=== PATIENT | female | born 1945 | race Caucasian/White ===

== ENCOUNTER → 2023-07-22 | Outpatient (CLI) | payer MEDICARE, SELFPAY ==
--- NOTE | 2023-07-22 10:23 | MRI_ITS ---
EXAM: MR HEAD WITHOUT AND WITH INTRAVENOUS CONTRAST, INTERNAL AUDITORY CANAL PROTOCOL CLINICAL INDICATION: HEARING LOSS TECHNIQUE: Multiplanar and multisequence MR images of the internal auditory canal were obtained without and with intravenous contrast. CONTRAST: IV 20 ml clariscan COMPARISON: No relevant prior studies available. FINDINGS: CRANIAL NERVES: No significant abnormality. No mass. No abnormal enhancement. Specifically, the 7th and 8th nerve complexes are normal. No pathologic enhancement. COCHLEA AND SEMICIRCULAR CANALS: No significant abnormality. CEREBELLOPONTINE ANGLES: No significant abnormality. No mass. BRAIN AND EXTRA-AXIAL SPACES: Periventricular and subcortical T2 and T2 FLAIR hyperintense foci are nonspecific although most commonly due to chronic microvascular ischemic changes in patient of this age. Posterior fossa structures are unremarkable. No hydrocephalus. Basal cisterns are patent. No evidence of acute infarct or acute intracranial hemorrhage and no intracranial mass or mass effect. BONES/JOINTS: No significant abnormality. No discrete lytic or blastic abnormalities. SINUSES: Left larger than right maxillary sinus mucus retention cyst. MASTOID AIR CELLS: Trace right mastoid effusion. ORBITS: Bilateral ocular lens extraction presumptively for the treatment of cataracts. Otherwise, no acute orbital pathology. MRI/Brain W/WO Contrast IMPRESSION: Findings most consistent with chronic microvascular ischemic change. No evidence of retrocochlear pathology. Electronically Signed: Gustavo Hawley DO at 20:33 EST ,
[2023-07-22 11:23] LABS: CREATININE FINGERSTICK < 0.9 mg/dL (0.55-1.02); EGFR FINGERSTICK > 60.0000 mL/min (>60)
== END | disposition home or self-care (01) ==
PROVIDERS: PCP Family Medicine; Referring Provider Otolaryngology; Visit Provider Otolaryngology
DX: H90.3 Sensorineural hearing loss, bilateral (principal)
CPT/HCPCS: 70553; A9575

== ENCOUNTER → 2025-07-08 | Outpatient (CLI) | payer MEDICARE, SELFPAY | END | disposition home or self-care (01) | LOC: SL 19:48 | PROVIDERS: PCP Family Medicine; Referring Provider Internal Medicine Cardiovascular Disease; Visit Provider Internal Medicine Cardiovascular Disease | DX: G47.10 Hypersomnia, unspecified (principal) | CPT/HCPCS: 95810 ==

== ENCOUNTER 2025-08-13 10:14 | Emergency (ER) | payer MEDICARE, SELFPAY ==
[2025-08-13 10:15] VITALS: BP 139/57; PULSE 86; RESP 20; TEMP 36.4; O2SAT 98
[2025-08-13 10:17] VITALS: BMI 44.4
--- NOTE | 2025-08-13 10:40 | VDLE_ITS ---
Reason For Study Reason For Study: RLE Swelling/Pain RIGHT GSV is normal. CFV is compressible, spontaneous, phasic, competent and demonstrates normal augmentation. FV is compressible, spontaneous, phasic, competent and demonstrates normal augmentation. POP V is compressible, spontaneous, phasic, competent and demonstrates normal augmentation. T/P Trunk is compressible. PTV is compressible. RT PerV is compressible. Anechoic Nonvascularized area noted from medial knee to mid medial gastrocnemius muscle measuring approximately 8.00cm x 2.06cm. Procedure Exam performed portable in ED. This is a venous duplex using B-mode, color flow and spectral Doppler. The study was technically difficult. Limited views of calf vessels obtained due to swelling and edema. A preliminary report was called and/or faxed to Dr. Pizano. VL/Venous Duplex US, Unilateral Interpretation Summary Deep veins of the right lower extremity are patent and compressible segmentally . There is no evidence of right lower extremity deep vein thrombosis. Valvular competence appears intact within the p roximal deep venous system on the right . The right great saphenous vein appears patent and compressible segmentally. A n on-vascular, anechoic structure is noted on the medial aspect of the right knee and calf, measuring 8.00 cm x 2.06 cm. T his may represent a hematoma or seroma. Clinical correlation is advised. Ordering Physician: Ritesh Pizano Referring Physician: Lilia Daniel Performed By: Ruben Basurto, JAVI
--- NOTE | 2025-08-13 10:41 | EX.ED.DYSGE1 ---
HPI History of Present Illness Chief Complaint: Lower Extremity Injury Narrative Narrative: Pt is a 79-year-old female who is presenting with right leg swelling, to concern DVT. on Saturday patient was coming down 1 step. Patient stated that she felt a twisting of her knee and right calf. Patient felt a popping sensation. Patient's been having a harder time ambulating at home for the past 5 days. Patient has been using a walker. Patient used a wheelchair to come into the ER today. Patient has swelling and bruising to the right calf/medial aspect of right calf. Patient is on a blood thinner. Patient has seen Dr. Erasto Baird in the past for left total knee replacement. Patient has not called her PCP orthopedic surgeon today. Patient has been using some heat, not using consistent ice. Patient has been taking nothing for the pain. Patient was brought in by 2 daughters, patient chief concern is blood clot. Patient is having some mild pain to right ankle and foot with swelling. Obese, REVIEW OF SYSTEMS: Unless otherwise stated in this report the patient's positive and negative responses for review of systems for constitutional, eyes, ENT, cardiovascular, respiratory, gastrointestinal, neurological, , musculoskeletal, and integument systems and related systems to the presenting problem are either stated in the history of present illness or were not pertinent or were negative for the symptoms and/or complaints related to the presenting medical problem. Nurse's notes and vital signs reviewed. The patient is not hypoxic. Vital signs reviewed and patient is not hypoxic. General: The patient appears well and in no apparent distress. Patient is resting comfortably on cart. Not toxic, lethargic, or listless. Skin: Warm, dry, no pallor noted. There is no rash noted. Head: Normocephalic, atraumatic Eye: Normal conjunctiva, no drainage, EOMI. PERRL. Ears, Nose, Mouth, and Throat: oral mucosa is moist. Nares patent. Mouth without vesicles. Cardiovascular: Regular Rate and Rhythm, no murmurs, gallops, or rubs Respiratory: Patient is in no distress, no accessory muscle use, lungs are clear to auscultation, no wheezing, rales or rhonchi Back: non-tender, GI: Soft, obese, no tenderness Musculoskeletal: The patient has full range of motion of all extremities and joints with no difficulty. Patient has no motor, no sensory deficits. Patient has moderate tenderness palpation to the posterior aspect of the right calf. Moderate tenderness palpation of the right popliteal fossa, no pain to palpation to the right posterior thigh. Patient has moderate swelling to the right calf, she has ecchymosis noted to the medial aspect of her right calf. Patient has mild swelling to the right foot and ankle, she has no tenderness to palpation to right Achilles, no acute tenderness to palpation to bilateral malleoli or the dorsal or posterior plantar aspect of the right foot. Patient has moderate range of motion of the right knee with mild to moderate pain. No obvious signs of anterior posterior drawer sign to the right knee, but limited range of motion secondary to right calf pain. Patient has no laxity or pain with varus or valgus stress. Patient does have ecchymosis noted to the medial aspect of her right calf, mild amount. Neurological: A&O x4, normal speech, no focal neurological deficits. Psychiatric: Cooperative [facility] Medical History Pulmonary hypertension NICK (obstructive sleep apnea) Thrombus of left atrial appendage Tricuspid valve regurgitation Hypertension Dyslipidemia Type 2 diabetes mellitus Heart failure with preserved ejection fraction Myocardial infarction Atrial fibrillation Home Medications ?Medication ?Instructions ?Recorded ?Last Taken ?Type acetaminophen 650 mg 650 mg PO Q8H PRN 05/24/25 Unknown History tablet,extended release (Tylenol 8 Hour) ascorbate calcium (vitamin C) 500 500 mg PO QDAY 05/24/25 Unknown History mg tablet calcium citrate 250 mg PO QDAY 05/24/25 Unknown History cetirizine 10 mg tablet (Allergy 10 mg PO QDAY PRN 05/24/25 Unknown History Relief (cetirizine)) cholecalciferol (vitamin D3) 50 50 mcg PO QDAY 05/24/25 Unknown History mcg (2,000 unit) capsule multivitamin 1 tab PO QDAY 05/24/25 Unknown History nystatin 100,000 unit/gram topical 1 applic topical TID 05/24/25 Unknown History cream furosemide 20 mg tablet (Lasix) 20 mg PO QDAY #120 tabs 06/09/25 Unknown Rx metoprolol succinate 25 mg 12.5 mg (1/2 x 25 mg) PO QDAY #90 06/09/25 Unknown Rx tablet,extended release 24 hr tabs potassium chloride 10 mEq 10 meq PO BID #90 tabs 06/09/25 Unknown Rx tablet,extended release (Klor-Con) rivaroxaban 20 mg tablet (Xarelto) 20 mg PO QDAY #90 tabs 06/09/25 Unknown Rx tramadol 50 mg tablet 50 mg PO Q4H PRN PRN Pain 5 days 08/13/25 Unknown Rx #15 tabs Allergy/AdvReac Type Severity Reaction Status Date / Time No Known Allergies Allergy Verified 08/13/25 10:17 Family History Father Cancer Mother Heart disease Brother CVA (cerebral vascular accident) Surgical History History of cholecystectomy History of knee replacement History of tubal ligation Social History Smoking Status: Former smoker alcohol intake: never substance use type: does not use caffeine: No EXAM Physical Exam Const Vital Signs: 08/13/25 10:15 08/13/25 13:11 Temperature 97.6 F L 97.8 F Temperature Source Temporal Pulse Rate 86 90 Respiratory Rate 20 H 16 Blood Pressure 139/57 H 136/54 H Blood Pressure Mean 84 81 Pulse Ox 98 98 Oxygen Delivery Method Room Air MDM MDM MDM Narrative Medical decision making narrative: Patient duplex of the right lower extremity shows no DVT. A x-ray was ordered of the right tib-fib because her pain is into the mid right medial calf. No acute signs of fracture. A lot of education was done at bedside with patient and 2 daughters Key's cyst, DVT, meniscus tear, ligament sprain, or right calf muscle tear. Education on using ice and no more heat was discussed. Patient will start using Tylenol and was also given a prescription for tramadol. Patient understands this, no questions at discharge. Patient was able to stand at bedside, get dressed. Patient and 2 daughters feel comfortable taking her home using a walker. Patient was given Tylenol and tramadol in the ER. Radiography Diagnostic Testing: Clinical Impression(s) from Imaging Studies Tibia/Fibula X-Ray 08/13/25 12:25 IMPRESSION: DEGENERATIVE OSTEOARTHROSIS. NO ACUTE FINDINGS. Reading Location: [facility] Discharge Plan Triage Chief Complaint: Lower Extremity Injury ED Provider: Ritesh Pizano Dx/Rx/DC Orders Clinical Impression: Leg pain, right Instructions: Gastrocnemius Muscle Tear, ED Key's Cyst, ED Meniscal Injury Knee Poss, ED Knee Sprain Ligaments Prescriptions: New tramadol 50 mg tablet 50 mg PO Q4H PRN PRN (Reason: Pain) 5 Days Qty: 15 0RF No Action nystatin 100,000 unit/gram cream 1 applic topical TID cetirizine [Allergy Relief (cetirizine)] 10 mg tablet 10 mg PO QDAY PRN multivitamin Tablet 1 tab PO QDAY acetaminophen [Tylenol 8 Hour] 650 mg tablet extended release 650 mg PO Q8H PRN cholecalciferol (vitamin D3) 50 mcg (2,000 unit) capsule 50 mcg PO QDAY calcium citrate 250 mg calcium tablet 250 mg PO QDAY ascorbate calcium (vitamin C) 500 mg tablet 500 mg PO QDAY furosemide [Lasix] 20 mg tablet 20 mg PO QDAY Qty: 120 3RF Rx Instructions: 1 tablet daily on Sat, , Sat, Sat, Sat; 1 tablet twice daily on Sat and metoprolol succinate 25 mg tablet extended release 24 hr 12.5 mg PO QDAY Qty: 90 3RF potassium chloride [Klor-Con 10] 10 mEq tablet extended release 10 meq PO BID Qty: 90 3RF Rx Instructions: 1 tablet twice daily Sat, , Sat, Sat, Sat; 1 tablet three times daily Sat and Th Xarelto 20 mg tablet 20 mg PO QDAY Qty: 90 3RF Rx Instructions: must administer with evening meal Primary Care Provider: Lilia Daniel Referrals: Erasto Baird MD [Med Staff - Active Staff, Orthopedics] Lilia Daniel PA-C [Primary Care Provider, Medical] Activity Restrictions/Additional Instructions: Use ice 20 minutes on, 20 minutes off to areas of pain to the right leg for the next 1 to 2 weeks. Use Tylenol every 4 hours as needed for pain, max dose is 3000 mg a day. You may also use tramadol to take for pain with Tylenol if needed for moderate to severe pain. Education was given to meniscus tear, ligament tear, muscle tear, Key's cyst for educational purposes only. I am not diagnosing him with any of these conditions, but these are all the things we discussed at bedside as possible reasons for the swelling and bruising. Print Language: Mosotho Disposition Disposition: Home, Self Care Discharge Date/Time: 08/13/25 13:12
--- OUTSIDE RECORDS SUMMARY | 2025-08-13 12:07 | XMS RPT_ITS | CCD ---
Author Organization [facility] Care Team Providers Care Diet Counselor Name Role Phone HILLS, CASEY Consulting Unavailable HARDY, CASEY Primary Care Unavailable HARDY, CASEY Admitting Unavailable HARDY, CASEY Attending Unavailable PROVIDER, UNKNOWN Consulting Unavailable HARDY, CASEY Primary Care Unavailable HARDY, CASEY Admitting Unavailable HILLS, CASEY Attending Unavailable HILLS, CASEY Consulting Unavailable PROVIDER, UNKNOWN Consulting Unavailable HEIN, DAMIEN Admitting Unavailable HEIN, DAMIEN Attending Unavailable HEIN, DAMIEN Primary Care Unavailable HARDY, CASEY Consulting Unavailable PROVIDER, UNKNOWN Consulting Unavailable FRAN GRIMALDO MD Admitting UnavailFRAN Enriquez MD Attending Unavailabl e FRAN GRIMALDO MD Primary Care Unavailabl e HARDY, CASEY Consulting Unavailable PROVIDER, UNKNOWN Consulting Unavailable HEIN, DAMIEN Primary Care Unavailable HEIN, DAMIEN Admitting Unavailable HEIN, DAMIEN Attending Unavailable HARDY, CASEY Consulting Unavailable PROVIDER, UNKNOWN Consulting Unavailable HARDY, CASEY Primary Care Unavailable HARDY, CASEY Admitting Unavailable HILLS, CASEY Attending Unavailable HILLS, CASEY Consulting Unavailable PROVIDER, UNKNOWN Consulting Unavailable FRAN GRIMALDO MD Admitting UnavailFRAN Enriquez MD Attending UnavailFRAN Enriquez MD Primary Care Unavailnoel GUDINO MD, DR BLANCHE Camarena Attending Unavailable HARDY PA-C, CASEY Primary Care Unavailable Brinklow PA-C, Casey Primary Care Physician [phone] María VELASCOC, Casey Referring Provider Dr. Gordon Fernandez MD Attending Physician Gordon Fernandez Attending Unavailable Brinklow PA, Casey Primary Care Unavailable Brinklow PA, Casey Referring Unavailable Natalie Kingsley NP Attending Unavailable Brinklow PA, Casey Primary Care Unavailable Brinklow PA, Casey Referring Unavailable Gordon Fernandez Referring Unavailable Brinklow PA, Casey Primary Care Unavailable Gordon Fernandez Attending Unavailable Medications Current Medications Medication Drug Class(es) Dates Sig (Normalized) Sig (Original) 8 hr acetaminophen 650 mg extended release oral tablet (1 source) Start: 05-24-2025 take 1 tablet by mouth every eight hours as needed Acetaminophen (Tylenol 8 Hour) 650 mg tablet extended release Active 650 mg PO Q8H as needed May 24, 2025 12:00am Complies with drug therapy calcium ascorbate 500 mg oral tablet (1 source) Start: 05-24-2025 take 1 tablet by mouth once daily Ascorbate Calcium (Vitamin C) 500 mg tablet Active 500 mg PO daily May 24, 2025 12:00am Complies with drug therapy calcium citrate 1040 mg oral tablet (1 source) Start: 05-24-2025 take 1 tablet by mouth once daily Calcium Citrate 250 mg calcium tablet Active 250 mg PO daily May 24, 2025 12:00am Complies with drug therapy cetirizine hydrochloride 10 mg oral tablet (1 source) Histamine-1 Receptor Antagonist Start: 05-24-2025 take 1 tablet by mouth once daily as needed Cetirizine (Allergy Relief (Cetirizine)) 10 mg tablet Active 10 mg PO daily as needed May 24, 2025 12:00am Complies with drug therapy cholecalciferol 0.05 mg oral capsule (1 source) Vitamin D Start: 05-24-2025 take 1 capsule by mouth once daily Cholecalciferol (Vitamin D3) 50 mcg (2,000 unit) capsule Active 50 ug PO daily May 24, 2025 12:00am Complies with drug therapy furosemide 20 mg oral tablet (2 sources) Loop Diuretic Start: 05-24-2025 End: 06-09-2025 take 1 tablet by mouth once daily Furosemide (Lasix) 20 mg tablet Active 20 mg PO daily 120 June 09, 2025 11:40am 1 tablet daily on Sun, Tu, Wed, Fri, Sat; 1 tablet twice daily on Mon and Th Complies with drug therapy 24 hr metoprolol succinate 25 mg extended release oral tablet (3 sources) beta-Adrenergic Carmen Start: 06-09-2025 End: 06-09-2025 take 2 tablets by mouth once daily Metoprolol Succinate 25 mg tablet extended release 24 hr Active 12.5 mg PO daily 90 June 09, 2025 11:42am Complies with drug therapy Start: 05-24-2025 End: 06-09-2025 take 1 tablet by mouth once daily Metoprolol Succinate 25 mg tablet extended release 24 hr Discontinued 25 mg PO daily May 24, 2025 12:00am June 09, 2025 11:08am Multivitamin tablet (1 source) Start: 05-24-2025 Multivitamin tablet Active 1 {tbl} PO daily May 24, 2025 12:00am Complies with drug therapy nystatin [id number] unt/ml topical cream (1 source) Polyene Antifungal Start: 05-24-2025 Nystatin 100,000 unit/gram cream Active 1 NMA TOPICAL THREE TIMES A DAY May 24, 2025 12:00am Complies with drug therapy potassium chloride 10 meq extended release oral tablet (2 sources) Start: 05-24-2025 End: 06-09-2025 take 1 tablet by mouth twice daily Potassium Chloride (Klor-Con 10) 10 mEq tablet extended release Active 10 meq PO TWICE A DAY 90 June 09, 2025 11:42am 1 tablet twice daily Sun, Tu, Wed, Fri, Sat; 1 tablet three times daily Sat and Complies with drug therapy rivaroxaban 20 mg oral tablet (2 sources) Factor Xa Inhibitor Start: 05-24-2025 End: 06-09-2025 take 1 tablet by mouth once daily at dinner Rivaroxaban (Xarelto) 20 mg tablet Active 20 mg PO daily 90 June 09, 2025 11:42am must administer with evening meal Complies with drug therapy triamcinolone acetonide 1 mg/ml topical cream (1 source) Corticosteroid Start: 05-24-2025 Triamcinolone Acetonide 0.1 % cream Active 1 NMA TOPICAL TWICE A DAY May 24, 2025 12:00am Complies with drug therapy Problems Active Problems Problem Classification Problem Date Documented Da te Episodic/Chronic Cardiac dysrhythmias (6 sources) Unspecified atrial fibrillation; Translations: [Atrial fibrillation] Onset: 05-28-2024 Chronic Congestive heart failure; nonhypertensive (3 sources) Heart failure, unspecified; Translations: [Heart failure with normal ejection fraction] Onset: 03-08-2025 06-09-2025 Chronic Diabetes mellitus without complication (3 sources) Type 2 diabetes mellitus without complications; Translations: [Type 2 diabetes mellitus] Onset: 05-20-2024 06-09-2025 Chronic Diabetes mellitus without complication (2 sources) Prediabetes; Translations: [Prediabetes] Onset: 09-15-2024 Episodic Disorders of lipid metabolism (2 sources) Dyslipidemia; Translations: [Hyperlipidemia, unspecified] 05-24-2025 Chronic Essential hypertension (2 sources) Hypertensive disorder; Translations: [Essential (primary) hypertension] 06-09-2025 Chronic Heart valve disorders (2 sources) Rheumatic tricuspid insufficiency; Translations: [Tricuspid valve regurgitation] Onset: 05-28-2024 05-24-2025 Chronic Pulmonary heart disease (2 sources) Pulmonary hypertension; Translations: [Pulmonary hypertension, unspecified] 05-24-2025 Chronic Residual codes; unclassified (1 source) Obstructive sleep apnea syndrome; Translations: [Obstructive sleep apnea (adult) (pediatric)] 05-24-2025 Chronic Residual codes; unclassified (1 source) Hypersomnia, unspecified; Translations: [Hypersomnia, unspecified] Onset: 07-19-2025 Chronic Past or Other Problems Problem Classification Problem Date Documented Da te Episodic/Chronic Other aftercare (1 source) Other [employer] (current) drug therapy; Translations: [Other senior living (current) drug therapy] Onset: 07-17-2024 Episodic Other skin disorders (3 sources) Sebaceous cyst; Translations: [Sebaceous cyst] Onset: 07-17-2024 Episodic Residual codes; unclassified (1 source) Edema, unspecified; Translations: [Edema, unspecified] Onset: 10-12-2024 Episodic Results Test Name Value Interpretation Reference Range Facility Cardiology Visit Reporton Cardiology Visit Report [facility] [address] [place] [address] OFFICE VISIT Date of Service: 06/09/25 MR#: [id number] Acct: [id number] Name: SANDRA ARREDONDO Rep #: [id number] : 1945 Provider: Dr. Gordon frank MD Age/Sex: 79/F Location: [facility] [place] Status: Signed with Addenda ADDENDUM by Dr. Gordon Fernandez MD on 06/10/25 at 1033 Assessment and Plan Assessment and Plan (1) Heart failure with preserved ejection fraction: Status: Acute Qualifiers: Heart failure chronicity: chronic Qualified Code(s): I50.32 - Chronic diastolic (congestive) heart failure (2) Atrial fibrillation: Status: Acute Qualifiers: Atrial fibrillation type: permanent Qualified Code(s): I48.21 - Permanent atrial fibrillation (3) Dyslipidemia: Status: Acute (4) Hypertension: Status: Chronic Qualifiers: Hypertension type: primary hypertension Qualified Code(s): I10 - Essential (primary) hypertension (5) Pulmonary hypertension: Status: Acute Plan: Suspect obstructive sleep apnea is part of the etiology of her pulmonary hypertension. STOP-BANG Assessment: 1. Do you snore? [No] 2. Are you frequently tired during the day? [Yes] 3. Have you been observed gasping or choking while asleep? [No] 4. Do you have high blood pressure? [Yes] 5. BMI - greater than 35kg/m2? [Yes] 6. Age - over 50 years old? [Yes] 7. Neck Circumference - greater than 37 cm for females or 40 cm for males? [No] 8. Gender - male? [No] Total STOP-BANG score = [4] which indicates [high] risk for obstructive sleep apnea (yes to 3 or more questions = high risk of sleep apnea). (6) Type 2 diabetes mellitus: Status: Acute Qualifiers: Diabetes mellitus senior living insulin use: without senior living use Diabetes mellitus complication status: without complication Qualified Code(s): E11.9 - Type 2 diabetes mellitus without complications Orders: Orders 12 Lead EKG performed by [facility] 06/09/25 I48.91 - Unspecified atrial fibrillation Polysomnography 2 Weeks G47.10 - Hypersomnia, unspecified Medications: New furosemide (Lasix) 1 tablet daily on Sun, , Wed, Fri, Sat; 1 tablet twice daily on Mon and Thurs 20 mg PO QDAY 120 tabs 3RF metoprolol succinate ER 12.5 mg (1/2 x 25 mg) PO QDAY 90 tabs 3RF potassium chloride ER (Klor-Con) 1 tablet twice daily Sun, Tu, Sat, Fri, Sat; 1 tablet three times daily Mon and Thurs 10 mEq PO BID 90 tabs 3RF rivaroxaban (Xarelto) must administer with evening meal 20 mg PO QDAY 90 tabs 3RF Plan Details Follow Up: 6 Months (With CONNIE and as needed) 06/10/25 1033 Date Gordon Fernandez MD cc: LISANDRO Daniel * Signed HPI HPI History of Present Illness Details: Patient is a very pleasant 79-year-old white female that comes in with her 2 daughters this morning to establish as a new patient. Patient carries a history of heart failure with preserved ejection fraction. She has never been hospitalized. She also has a history of pulmonary hypertension pulmonary artery pressures estimated at 42 with the right ventricle being mildly enlarged with normal systolic function May 2024 echo. She has a history of hypertension blood pressure is well-controlled in the office today at 131/80 she has a history of hyperlipidemia last lipids May 2024 were excellent she also has a history of diabetes I do not have a hemoglobin A1c. The patient also has permanent atrial fibrillation which is treated with oral anticoagulation with Xarelto which she gets for $10-$12 a month and rate control with metoprolol. ECG in office today shows atrial fibrillation at 74 bpm with low voltage QRS this was done seated in the chair. The patient has not been on an SGLT2 inhibitor as she has recurrent yeast infections and is concerned about the side effects. The patient denies any PND orthopnea she denies any significant dyspnea on exertion. She gets around in her house utilizing a cane and occasionally a walker. When going on long walks out to the store she uses a wheelchair. The patient does her actives of daily living and she is able to do some light housework. Her biggest complaint is her significant kyphosis. The patient has a history of obstructive sleep apnea but neither she nor her daughters know where that came from she has never had a sleep test to her knowledge. Intake Vital Signs 06/09/25 11:09 Height 4 ft 10 in Weight: 201 lb BMI 42.0 BP 131/80 H Blood Pressure Location Lt brachial Position Sitting Respiration 18 Pulse 72 Pulse Source Monitor Pulse Oximetry (%) 95 Oxygen Delivery Method room air Intake Visit Reasons: CHF (MARÍA) Extractions Technician Required: No Accompanied by: Daughters Is patient in pain?: No Allergies No Known Allergies Allergy (U (more content not included)... Normal [facility] BMP with eGFRon 03-08-2025 AGE 79 years Normal [facility] Comment on above: Performed By: #### 2 [id number] #### [facility],[address] [place] [address] 23021 Anion gap [Moles/Vol] 8 mmol/L Low 10 - 20 [facility] Comment on above: Performed By: #### 2 14645 #### [facility],[address] [place] [address] 73547 BMP with eGFR Normal [facility] Comment on above: Result Comment: BASI C METABOLIC PANEL Performed By: #### 2 84913 #### [facility],[address] [place] [address] 15340 Calcium [Mass/Vol] 8.6 mg/dL Normal 8.5 - 10.1 [facility] Comment on above: Performed By: #### 2 95647 #### [facility],[address] [place] [address] 98427 Chloride [Moles/Vol] 105 mmol/L Normal 98 - 107 [facility] Comment on above: Performed By: #### 2 83206 #### [facility],[address] [place] [address] 68677 CO2 [Moles/Vol] 30.2 mmol/L Normal 21.0 - 32.0 [facility] Comment on above: Performed By: #### 2 80252 #### [facility],[address] [place] [address] 64736 Creatinine [Mass/Vol] 0.62 mg/dL Normal 0.55 - 1.02 [facility] Comment on above: Performed By: #### 2 92571 #### [facility],[address] [place] [address] 87016 GFR/1.73 sq M.predicted among non-blacks MDRD (S/P/Bld) [Vol rate/Area] mL/min/{1.73_m2} Normal 60 - 999 [facility] Comment on above: Performed By: #### 2 93487 #### [facility],[address] [place] [address] Result Comment: ACCO RDING TO THE NATIONAL KIDNEY DISEASE EDUCATION PROGRAM(NKDE), A NORMAL eGFR IS A VALUE GREATER THAN OR EQUAL TO 60 ML/MIN/1.73 SQ METERS. CHRONIC KIDNEY DISEASE: <60mL/MIN/1.73 SQ METERS KIDNEY FAILURE: <15mL/MIN/1.73 SQ METERS THIS TEST SHOULD ONLY BE USED FOR PATIENTS 18 YEARS OF AGE AND OLDER. Glucose [Mass/Vol] 112 mg/dL High 74 - 106 [facility] Comment on above: Performed By: #### 2 46804 #### [facility],[address] [place] [address] Potassium [Moles/Vol] 4.3 mmol/L Normal 3.5 - 5.1 [facility] Comment on above: Performed By: #### 2 70381 #### [facility],[address] [place], [place] [id number] Sodium [Moles/Vol] 139 mmol/L Normal 136 - 145 [facility] Comment on above: Performed By: #### 2 28165 #### [facility],[address] [place], [place] [id number] Urea nitrogen [Mass/Vol] 14 mg/dL Normal 7 - 18 [facility] Comment on above: Performed By: #### 2 54585 #### [facility],[address] [place], [place] [id number] NT-proBNPon 03-08-2025 Natriuretic peptide B (Bld) [Mass/Vol] 1303 pg/mL High 0 - 450 [facility] Comment on above: Performed By: #### 2 54693 #### [facility],[address] [place] [address] 67650 CMP with eGFRon 10-12-2024 AGE 78 years Normal [facility] Comment on above: Performed By: #### 2 11270 #### [facility],[address] [place] [address] 57584 Albumin [Mass/Vol] 3.1 g/dL Low 3.4 - 5.0 [facility] Comment on above: Performed By: #### 2 62222 #### [facility],[address] [place] [address] 39256 Albumin/Globulin [Mass ratio] 1.0 {ratio} Normal 0.9 - 1.6 [facility] Comment on above: Performed By: #### 2 27160 #### [facility],[address] [place] [address] 48427 ALK PHOS 83 U/L Normal 46 - 116 [facility] Comment on above: Performed By: #### 2 94639 #### [facility],[address] [place] [address] 33116 ALT [Catalytic activity/Vol] 8 U/L Low 16 - 63 [facility] Comment on above: Performed By: #### 2 53008 #### [facility],[address] [place] [address] 13319 Anion gap [Moles/Vol] 11 mmol/L Normal 10 - 20 [facility] Comment on above: Performed By: #### 2 01885 #### [facility],[address] [place] [address] 27961 AST [Catalytic activity/Vol] 23 U/L Normal 13 - 39 [facility] Comment on above: Performed By: #### 2 35137 #### [facility],[address] [place] [address] 88001 B/C RATIO 38 ratio High 0 - 30 [facility] Comment on above: Performed By: #### 2 69226 #### [facility],[address] [place] [address] 51402 Bilirubin [Mass/Vol] 0.9 mg/dL Normal 0.2 - 1.0 [facility] Comment on above: Performed By: #### 2 83143 #### [facility],[address] [place] [address] 35906 Calcium [Mass/Vol] 8.7 mg/dL Normal 8.5 - 10.1 [facility] Comment on above: Performed By: #### 2 05042 #### [facility],[address] [place] [address] 84057 Chloride [Moles/Vol] 110 mmol/L High 98 - 107 [facility] Comment on above: Performed By: #### 2 96950 #### [facility],[address] [place] [address] 15650 CMP with eGFR Normal [facility] Comment on above: Result Comment: COMP REHENSIVE METABOLIC PANEL Performed By: #### 2 22894 #### [facility],[address] [place] [address] 66990 CO2 [Moles/Vol] 26.7 mmol/L Normal 21.0 - 32.0 [facility] Comment on above: Performed By: #### 2 38679 #### [facility],[address] [place] [address] 20749 Creatinine [Mass/Vol] 0.48 mg/dL Low 0.55 - 1.02 [facility] Comment on above: Performed By: #### 2 58810 #### [facility],[address] [place] [address] 19476 GFR/1.73 sq M.predicted among non-blacks MDRD (S/P/Bld) [Vol rate/Area] mL/min/{1.73_m2} Normal 60 - 999 [facility] Comment on above: Performed By: #### 2 40281 #### [facility],[address] [place] [address] 56135 Result Comment: ACCO RDING TO THE NATIONAL KIDNEY DISEASE EDUCATION PROGRAM(NKDE), A NORMAL eGFR IS A VALUE GREATER THAN OR EQUAL TO 60 ML/MIN/1.73 SQ METERS. CHRONIC KIDNEY DISEASE: <60mL/MIN/1.73 SQ METERS KIDNEY FAILURE: <15mL/MIN/1.73 SQ METERS THIS TEST SHOULD ONLY BE USED FOR PATIENTS 18 YEARS OF AGE AND OLDER. Globulin (S) [Mass/Vol] 3.1 g/dL Normal 1.5 - 3.8 [facility] Comment on above: Performed By: #### 2 99377 #### [facility],[address] [place] [address] 83720 Glucose [Mass/Vol] 92 mg/dL Normal 74 - 106 [facility] Comment on above: Performed By: #### 2 27566 #### [facility],[address] [place] [address] 16787 Potassium [Moles/Vol] 3.7 mmol/L Normal 3.5 - 5.1 [facility] Comment on above: Performed By: #### 2 25599 #### [address] [address] Protein [Mass/Vol] 6.2 g/dL Low 6.4 - 8.2 [facility] Comment on above: Performed By: #### 2 61535 #### [facility],[address] [place] [address] 49790 Sodium [Moles/Vol] 144 mmol/L Normal 136 - 145 [facility] Comment on above: Performed By: #### 2 62073 #### [facility],[address] [place] [address] 42492 Urea nitrogen [Mass/Vol] 18 mg/dL Normal 7 - 18 [facility] Comment on above: Performed By: #### 2 19056 #### [facility],[address] [place] [address] 63453 DORSAL SPINE 2 VIEWSon 10-12 DORSAL SPINE [address] [address] Patient: SANDRA ARREDONDO Phone#: : 1945 Age: 78 Gender: F Pt. Type: Out Account: [id number] Location: 2 Ordering: CASEY HARDY Exam Date: 10/12/2024/10:09 Family Phys: Charge Code: [id number] Physician: Crook Order #: [id number] Dose#: PROCEDURE: X-RAY DORSAL SPINE 2 VIEWS COMPARISON: None. INDICATIONS: Back pain. FINDINGS: Patient is rotated to the left somewhat limiting the evaluation. BONES: Diffuse bony demineralization. On superior endplate compression deformity T5 and T3. Superior endplate compression deformity of L4. There is kyphosis centered at the lower thoracic spine. There are flowing anterior osteophytes. DISC SPACES: Normal. No significant disc height narrowing, subluxation, or endplate abnormality. PARASPINOUS: Negative. No paraspinous abnormality is seen. OTHER: Aortic calcifications are present. Surgical clips are present in the right upper quadrant. CONCLUSION: 1. Superior endplate compression deformities at T3, T5 and L4. Dictated by: Danisha Arroyo MD on 10/12/2024 at 15:08 Approved by: Danisha Arroyo MD on 10/12/2024 at 15:27 Normal [facility] HEMOGLOBIN A1C (POM)on 10-12 Glucose [Mass/Vol] 116.9 mg/dL High 0.0 - 0.0 [facility] Comment on above: Result Comment: BLDo HEMOGLOBIN A1C REFERENCE RANGESBLDo Suggested Diagnosis HbA1c(%) HbA1C (mmol/mol Diabetic >/=6.5 >/=48 Prediabetes 5.7 - 6.4 39 - 47 Normal <5.7 <39 Performed By: #### 2 99960 #### [facility],[address] [place], [place] [id number] HbA1c (Bld) [Mass fraction] 5.7 % Normal 0.0 - 6.5 [facility] Comment on above: Performed By: #### 2 31087 #### [facility],[address] [place], [place] [id number] LUMBO SACRAL COMPLETE MIN 4 VIEWSon 10-12-2024 LUMBO SACRAL COMPLETE MIN 4 VIEWS [place] [address] Patient: SANDRA ARREDONDO Phone#: : 1945 Age: 78 Gender: F Pt. Type: Out Account: [id number] Location: [facility] Ordering: CASEY HARDY Exam Date: 10/12/2024/10:15 Family Phys: Charge Code: [id number] Physician: Crook Order #: [id number] Dose#: PROCEDURE: X-RAY LUMBAR SPINE COMPLETE MIN 4 VIEWS COMPARISON: None. INDICATIONS: Back pain. FINDINGS: BONES: Diffuse bony demineralization. Degenerative changes of the spine. Is at aerated lordosis of the lumbar spine. There is mild superior endplate height loss at L2 and L3. Bulky anterior osteophyte at L2-3. Evaluation for pars defect 2 to bony demineralization and overlapping osseous structures. Osseous foraminal narrowing at L5-S1 due to facet arthropathy. DISC SPACES: Normal. No significant disc height narrowing, subluxation, or endplate abnormality. PARASPINOUS: Negative. No paraspinous abnormality is seen. OTHER: Surgical clips in the right upper quadrant. CONCLUSION: 1. Mild superior endplate loss of L2 and L3 2. Diffuse bony demineralization 3. Exaggerated lumbar lordosis 4. Osseous foraminal narrowing at L5-S1. Dictated by: Danisha Arroyo MD on 10/12/2024 at 16:02 Approved by: Danisha Arroyo MD on 10/12/2024 at 16:05 Normal [facility] NT-proBNPon 10-12-2024 Natriuretic peptide B (Bld) [Mass/Vol] 1174 pg/mL High 0 - 450 [facility] Comment on above: Performed By: #### 2 59943 #### [facility],[address] [place], [place] [id number] URINE CREATININE AND PROTEIN RATIOon 10-12-2024 CREATININE UR 116.66 mg/dl Normal [facility] Comment on above: Performed By: #### 2 83695 #### [facility],[address] [place] [address] 37507 PC RATIO 0.16 mg/dL Normal 0.00 - 10.00 [facility] Comment on above: Performed By: #### 2 84051 #### [facility],[address] [place] [address] 20538 Protein (U) [Mass/Vol] 19.20 mg/dL High 0.00 - 10.00 [facility] Comment on above: Performed By: #### 2 11755 #### [facility],[address] [place] [address] 36227 Final Surgical Pathology Rep [facility] 07-30-2024 Final Surgical Pathology Report . Pathology Reports Accession: Collected Date/Time: Received Date/Time: Pathologist: [id number] 07/27/2024 09:40 EST 07/29/2024 07:50 LORRAINE PENA MD Final Surgical Pathology Report DIAGNOSIS: RIGHT INFERIOR ABDOMINAL WALL MASS: - RUPTURED AND INFLAMED EPIDERMAL INCLUSION CYST COMMENT: [facility] - [id number] CLINICAL INFORMATION: ABDOMINAL WALL MASS SPECIMEN: A RIGHT INFERIOR ABDOMINAL WALL MASS GROSS DESCRIPTION: All parts labelled with patient name and [id number] Received in formalin labelled right inferior abdominal wall mass Is a irregular shaped skin excision measuring 0.8 x 0.5 and excised to maximum depth of 1.4 cm. Skin surface grossly unremarkable. Excision margin inked black. Tissue is bisected. TS-1 David Ron, Pathologists' Animal Science Professor (ASCP) Performed by DAVID RON MICROSCOPIC DESCRIPTION: The microscopic examination is performed, except in the case of Gross Only. Electronically Signed by Pathology Report verified by [facility] LORRAINE FOX Sign out Date: 07/30/2024 15:32 Performing Lab: [facility], [address] [place] [address] Pathology Dept Disclaimer If ancillary studies were utilized, the following Laboratory Developed Test (LDT) disclaimer will apply: Under CLIA requirements, [facility] is qualified to perform high complexity testing. For all ancillary stains, positive and negative controls stain appropriately. Performance characteristics of immunohistochemical and chromogenic in-situ hybridization tests have been determined by [facility]. These tests are used for clinical purposes, They should not be regarded as investigational or for research. Normal [facility] MA[facility] OPERATIVE PROCEDURES 07-29 OPERATIVE PROCEDURES [facility] OPERATIVE REPORT NAME ACCOUNT SEX AGE ADMIT DISCHARGE PT MED. RECORD# NUMBER DATE DATE TYPE JOSE MARTIN [id number] F 78 07/27/24 2 SANDRA Putnam [id number] ROOM: [facility] DATE OF : 1945 DICTATING PHYSICIAN: Damien Hein DATE OF SURGERY: July 27, 2024 SURGEON: Damien Hein MD RADIOLOGY RESIDENT: Alvarez Ross CRNA ANESTHESIOLOGIST: Mark Mojica CRNA ANESTHETIC: Local anesthesia 10 mL of 0.25% Sensorcaine with epinephrine. PREOPERATIVE DIAGNOSIS: POSTOPERATIVE DIAGNOSES: Right anterior abdominal wall lesion. OPERATION PERFORMED: Excision of right anterior abdominal wall lesion. COMPLICATIONS: ESTIMATED BLOOD LOSS: Less than 3 mL. FLUIDS GIVEN: 200 mL of crystalloid. SPECIMEN: Right anterior abdominal wall lesion to Pathology. DISPOSITION: Stable to recovery. INTRAVENOUS FLUIDS: 200 mL. INDICATIONS: Sandra Arredondo is a 78-year-old female who has a lesion on the right anterior abdominal wall. DESCRIPTION OF OPERATION: After informed consent, intravenous fluids, antibiotics, and demarcation, she was brought to the operating room and placed on the table in supine position with adequate padding at pressure points. She was given anesthesia, prepped and draped in the usual sterile fashion, and time-out and verification done. The lesion was locally anesthetized and then a transverse incision Page 1 of 2 SANDRA ARREDONDO Operative Report SANDRA ARREDONDO : 1945 was made to follow skin lines in a transverse fashion, deep into the underlying tissue, and a small sac like structure was carefully and tediously dissected free with a #15 scalpel and oozing points were coagulated. The wound was copiously irrigated with antibiotic solution. The specimen was sent to Pathology. Care taken to remove any suspicious tissue. The deeper layers were approximated with inverted interrupted undyed 4-0 PDS through subcutaneous and subcuticular layers followed by Benzoin and Steri-Strips and sterile dressings. The patient tolerated the procedure well, was awakened, and sent to the recovery room in good condition. The case will be discussed with the patient when she is more awake and alert. Pathology will be followed by my office. Dictated By: Damien Hein MD 07/27/24 09:55 JOB #: [id number] Transcribed By: am 07/27/24 10:51 Electronically signed by: E-Sign Dr. Damien Hein MD 07/29/24 08:11 Page 2 of 2 SANDRA ARREDONDO Operative Report Normal [facility] CBC + DIFFon 07-17-2024 Baso # 0.02 x10EE3/UL Normal 0.00 - 0.10 [facility] Comment on above: Performed By: #### 2 [id number] #### [facility],[address] [place] [address] Basophils/100 WBC (Bld) 0.4 % Normal 0.0 - 2.0 [facility] Comment on above: Performed By: #### 2 13481 #### [facility],[address] [place] [address] CBC + DIFF Normal [facility] Comment on above: Result Comment: CBC- COMPLETE BLOOD COUNT Performed By: #### 2 [id number] #### [facility],[address] [place] [address] EO # 0.05 x10EE3/UL Normal 0.00 - 0.50 [facility] Comment on above: Performed By: #### 2 18217 #### [facility],[address] [place] [address] Eosinophils/100 WBC (Bld) 1.2 % Normal 0.0 - 7.0 [facility] Comment on above: Performed By: #### 2 30373 #### [facility],[address] [place] [address] Erythrocyte distribution width (RBC) [Ratio] 14.1 % Normal 12.0 - 15.6 [facility] Comment on above: Performed By: #### 2 76867 #### [facility],[address] [place] [address] Hematocrit (Bld) [Volume fraction] 38.6 % Normal 34.0 - 46.0 [facility] Comment on above: Performed By: #### 2 85515 #### [facility],[address] [place] [address] Hemoglobin (Bld) [Mass/Vol] 12.3 g/dL Normal 12.0 - 16.0 [facility] Comment on above: Performed By: #### 2 24073 #### [facility],[address] [place] [address] Lymph # 0.94 x10EE3/UL Normal 0.80 - 2.80 [facility] Comment on above: Performed By: #### 2 68700 #### [facility],[address] [place] [address] Lymphocytes/100 WBC (Bld) 22.6 % Normal 20.0 - 45.0 [facility] Comment on above: Performed By: #### 2 79405 #### [facility],[address] [place] [address] MANUAL DIFF N/A Normal [facility] Comment on above: Performed By: #### 2 89484 #### [facility],[address] [place] [address] MCH (RBC) [Entitic mass] 30 pg Normal 27 - 33 [facility] Comment on above: Performed By: #### 2 02563 #### [facility],[address] [place] [address] MCHC 32 X10 3 Normal 32 - 36 [facility] Comment on above: Performed By: #### 2 84756 #### [facility],[address] [place], [place] [id number] MCV (RBC) [Entitic vol] 93 fL Normal 80 - 99 [facility] Comment on above: Performed By: #### 2 88871 #### [facility],[address] [place] [address] [place] # 0.38 x10EE3/UL Normal 0.20 - 1.00 [facility] Comment on above: Performed By: #### 2 12179 #### [facility],[address] [place] [address] MONOS % 9.1 % Normal 0.0 - 10.0 [facility] Comment on above: Performed By: #### 2 31542 #### [facility],[address] [place] [address] 91167 Morphology Gilberto (Bld) [Interp] N/A Normal [facility] Comment on above: Performed By: #### 2 28017 #### [facility],[address] [place] [address] 11194 Neut # 2.77 x10EE3/UL Normal 1.50 - 7.10 [facility] Comment on above: Performed By: #### 2 44123 #### [facility],[address] [place] [address] 92988 Neutrophils/100 WBC (Bld) 66.7 % Normal 46.0 - 76.0 [facility] Comment on above: Performed By: #### 2 97430 #### [facility],[address] [place] [address] 50558 PLATELET 179 x10EE3/UL Normal 150 - 450 [facility] Comment on above: Performed By: #### 2 23940 #### [facility],[address] [place] [address] 28360 Platelet mean volume (Bld) [Entitic vol] 7.5 fL Normal 6.6 - 10.5 [facility] Comment on above: Result Comment: AUTO MATED DIFFERENTIAL Performed By: #### 2 26202 #### [facility],[address] [place] [address] 37372 RBC 4.14 x 10EE6/UL Normal 4.10 - 5.30 [facility] Comment on above: Performed By: #### 2 17606 #### [facility],[address] [place] [address] 59101 WBC 4.2 x 10EE3/UL Low 4.5 - 10.8 [facility] Comment on above: Performed By: #### 2 81670 #### [facility],[address] [place] [address] CHEST 2 VIEWSon 07-17-2024 CHEST [address] [address] Patient: SANDRA ARREDONDO Phone#: : 1945 Age: 78 Gender: F Pt. Type: Out Account: [id number] Location: [facility] Ordering: DAMIEN [place]KA Exam Date: 07/17/2024/10:06 Family Phys: CASEY HARDY Charge Code: [id number] Physician: Crook Order #: [id number] Dose#: PROCEDURE: X-RAY CHEST 2 VIEWS COMPARISON: [facility], CT, CHEST W/O CON, 06/29/2022, 10:47. INDICATIONS: Infected sebaceous cyst. FINDINGS: LUNGS: Normal. No significant pulmonary parenchymal abnormalities. VASCULATURE: Normal. Unremarkable pulmonary vasculature. CARDIAC: Normal. No cardiac silhouette abnormality or cardiomegaly. MEDIASTINUM: Normal. No visible mass or adenopathy. PLEURA: Normal. No effusion or pleural thickening. BONES: Normal. No fracture or visible bony lesion. OTHER: 9 x 14 millimeter nodular focus is present in the lateral left thorax. Sclerotic focus is noted on prior CT of the chest may be related to this finding. There are 2 nodular foci in the right lower thorax superimposed on the right diaphragmatic dome corresponding to granuloma is noted on prior CT. CONCLUSION: 1. There is no evidence of acute pulmonary abnormality. 2. 14 x 9 millimeter nodular density superimposed on the lateral left 6th rib likely corresponds to a sclerotic focus noted on prior CT. Dictated by: Brenda Correa MD on 07/17/2024 at 10:38 Approved by: Brenda Correa MD on 07/17/2024 at 10:45 Normal [facility] CMP with eGFRon 07-17-2024 AGE 78 years Normal [facility] Comment on above: Performed By: #### 2 81535 #### [facility],[address] [place] [address] 93944 Albumin [Mass/Vol] 3.2 g/dL Low 3.4 - 5.0 [facility] Comment on above: Performed By: #### 2 84901 #### [facility],[address] [place] [address] 78495 Albumin/Globulin [Mass ratio] 1.0 {ratio} Normal 0.9 - 1.6 [facility] Comment on above: Performed By: #### 2 97837 #### [facility],[address] [place] [address] 23045 ALK PHOS 76 U/L Normal 46 - 116 [facility] Comment on above: Performed By: #### 2 05252 #### [facility],[address] [place] [address] 96673 ALT [Catalytic activity/Vol] 7 U/L Low 16 - 63 [facility] Comment on above: Performed By: #### 2 20030 #### [facility],[address] [place] [address] 70125 Anion gap [Moles/Vol] 11 mmol/L Normal 10 - 20 [facility] Comment on above: Performed By: #### 2 54328 #### [facility],[address] [place] [address] 33339 AST [Catalytic activity/Vol] 20 U/L Normal 13 - 39 [facility] Comment on above: Performed By: #### 2 11381 #### [facility],[address] [place] [address] 91057 B/C RATIO 23 ratio Normal 0 - 30 [facility] Comment on above: Performed By: #### 2 55709 #### [facility],[address] [place] [address] 76116 Bilirubin [Mass/Vol] 1.2 mg/dL High 0.2 - 1.0 [facility] Comment on above: Performed By: #### 2 60280 #### [facility],[address] [place] [address] 57305 Calcium [Mass/Vol] 9.2 mg/dL Normal 8.5 - 10.1 [facility] Comment on above: Performed By: #### 2 26655 #### [facility],[address] [place] [address] 06851 Chloride [Moles/Vol] 108 mmol/L High 98 - 107 [facility] Comment on above: Performed By: #### 2 11450 #### [facility],[address] [place] [address] 49820 CMP with eGFR Normal [facility] Comment on above: Result Comment: COMP REHENSIVE METABOLIC PANEL Performed By: #### 2 01141 #### [facility],[address] [place] [address] 61805 CO2 [Moles/Vol] 29.5 mmol/L Normal 21.0 - 32.0 [facility] Comment on above: Performed By: #### 2 63353 #### [facility],[address] [place] [address] 57316 Creatinine [Mass/Vol] 0.81 mg/dL Normal 0.55 - 1.02 [facility] Comment on above: Performed By: #### 2 40190 #### [facility],[address] [place] [address] 52750 GFR/1.73 sq M.predicted among non-blacks MDRD (S/P/Bld) [Vol rate/Area] mL/min/{1.73_m2} Normal 60 - 999 [facility] Comment on above: Performed By: #### 2 13045 #### [facility],[address] [place], [place] [id number] Result Comment: ACCO RDING TO THE NATIONAL KIDNEY DISEASE EDUCATION PROGRAM(NKDE), A NORMAL eGFR IS A VALUE GREATER THAN OR EQUAL TO 60 ML/MIN/1.73 SQ METERS. CHRONIC KIDNEY DISEASE: <60mL/MIN/1.73 SQ METERS KIDNEY FAILURE: <15mL/MIN/1.73 SQ METERS THIS TEST SHOULD ONLY BE USED FOR PATIENTS 18 YEARS OF AGE AND OLDER. Globulin (S) [Mass/Vol] 3.3 g/dL Normal 1.5 - 3.8 [facility] Comment on above: Performed By: #### 2 82366 #### [facility],[address] [place] [address] 39990 Glucose [Mass/Vol] 95 mg/dL Normal 74 - 106 [facility] Comment on above: Performed By: #### 2 11202 #### [facility],[address] [place] [address] 78791 Potassium [Moles/Vol] 4.0 mmol/L Normal 3.5 - 5.1 [facility] Comment on above: Performed By: #### 2 53739 #### [facility],[address] [place] [address] 10425 Protein [Mass/Vol] 6.5 g/dL Normal 6.4 - 8.2 [facility] Comment on above: Performed By: #### 2 99913 #### [facility],[address] [place] [address] 83558 Sodium [Moles/Vol] 144 mmol/L Normal 136 - 145 [facility] Comment on above: Performed By: #### 2 76676 #### [facility],[address] [place] [address] 51754 Urea nitrogen [Mass/Vol] 19 mg/dL High 7 - 18 [facility] Comment on above: Performed By: #### 2 60692 #### [facility],[address] [place] [address] 93885 RADIOLOGYon 06-01-2024 RADIOLOGY [place] [address] Patient: SANDRA ARREDONDO Phone#: : 1945 Age: 78 Gender: F Pt. Type: Out Account: [id number] Location: [facility] Ordering: FRAN GRIMALDO Exam Date: 05/28/2024/9:07 [facility] Charge Code: [id number] Physician: Crook Order #: [id number] Dose#: PROCEDURE: ECHOCARDIOGRAM WITH DOPPLER AND COLOR FLOW HISTORY: Patient is 78-year-old female with history of atrial fibrillation INDICATIONS: AFIB COMPARISON: None. TECHNIQUE: A 2-D ultrasound, color spectral Doppler and M-mode evaluation of the heart and great vessels. PATIENT MEASUREMENTS: Height (in.): 59 BSA: 1.87 Weight (lbs.): 207 BP: 128/61 Medical Review Coordinator: BINDU M MODE 2D MEASUREMENTS AND CALCULATIONS: LVIDd: 4.57 cm LVIDs: 3.41 cm IVSd: 0.99 cm LVPWd: 1.07 cm LVOT diam: 2.39 cm FS: 25.41 % Ao Root diam: 2.55 cm LA diam: 5.7 cm LA Volume Index: 64 ml/m2 LA A4 Area: 32.64 cm2 RA A4 Area: 25.2 cm2 RVDd: 4.4 cm TAPSE: 2.2 cm DOPPLER MEASUREMENTS AND CALCULATIONS MITRAL MV E MAX ti: 1.10 m/s MV A MAX ti: 0.39 m/s MV E-A ratio: 2.82 ERO: 0.07 cm2 Reg Vol 13.91 ml Lat Peak E' Ti 9 cm/sec Septal Peak E' TI 7 cm/sec Continued Report - Page 2 of 3 Patient: SANDRA ARREDONDO Phone#: : 1945 Age: 78 Gender: F Pt. Type: Out Account: [id number] Location: 052 Ordering: FRAN GRIMALDO Exam Date: 05/28/2024/9:07 Family Phys: CASEY HARDY Charge Code: [id number] Physician: Crook Order #: [id number] Dose#: AORTIC Ao V2 max: 1.63 m/s Ao max P.66 mm[Hg] Ao V2 mean: 1.15 m/s Ao mean P.97 mm[Hg] Ao V2 VTI: 40.15 cm RACHEL (V Max): 2.05 cm2 RACHEL (VTI): 2.08 cm2 LV V1 Max 0.75 m/s LV V1 Max PG 2.23 mm[Hg] LV V1 Mean PG 1.30 mm[Hg] LV V1 mean 0.54 m/s LV V1 VTI 18.55 cm PULMONIC PA V2 Max 0.85 m/s PA Max PG 2.88 mm[Hg] TRICUSPID TR Max Ti 2.89 m/s TR max PG 33.55 mm[Hg] RVSP 42 mm Hg 2D/M-MODE AND COLOR FLOW LEFT VENTRICLE: The ventricle is normal in size and thickness. Systolic ejection fraction is 55-60%. There are no regional wall motion abnormality seen. Can not assess diastolic function due to EA fusion WALL MOTION: 1 - Basal anterior: Normal. 7 - Mid anterior: Normal. 13 - Apical anterior: Normal. 2 - Basal anteroseptal: Normal. 8 - Mid anteroseptal: Normal. 14 - Apical septal: Normal. 3 - Basal inferoseptal: Normal. 9 - Mid inferoseptal: Normal. 15 - Apical inferior: Normal. 4 - Basal inferior: Normal. 10-Mid inferior: Normal. 16 - Apical lateral: Normal. 5 - Basal inferolateral: Normal. 11-Mid inferolateral: Normal. 6 - Basal anterolateral: Normal. 12-Mid anterolateral: Normal. RIGHT VENTRICLE: Right ventricle is mildly enlarged with normal systolic function. LEFT ATRIUM: Left atrium is severely enlarged. RIGHT ATRIUM: Right atrium is moderately enlarged. ATRIAL SEPTUM: There is no large interatrial shunt seen. PFO was not assessed. MITRAL VALVE: There is mild mitral annular calcification seen. Mitral valve leaflets appear normal in thickness. There is mild regurgitation and no stenosis seen. TRICUSPID VALVE: Tricuspid valve is normal structure. There is mild regurgitation and no stenosis seen AORTIC VALVE: Aortic valve is trileaflet with mild calcification. There is no regurgitation or stenosis seen Continued Report - Page 3 of 3 Patient: SANDRA ARREDONDO Phone#: : 1945 Age: 78 Gender: F Pt. Type: Out Account: [id number] Location: [facility] Ordering: FRAN GRIMALDO Exam Date: 05/28/2024/9:07 Family Phys: [facility] Charge Code: [id number] Physician: Crook Order #: [id number] Dose#: PULMONIC VALVE: Pulmonic valve is inadequately visualized. Doppler shows no significant regurgitation or stenosis AORTIC ROOT: Aortic root is normal in size AORTIC ARCH: Inadequately visualized DESC THORACIC AORTA: Inadequately visualized IVC/SVC: IVC is dilated with more than 50% collapse of inspiration. Estimated atrial pressure is 8 mm Hg. PERICARDIUM: There is no pericardial effusion seen CONCLUSION: 1. Echo enhancing agent was utilized to assess for endocardial drake 2. Left ventricle is normal in size and thickness. Systolic ejection fraction 55-60% with normal wall motion 3. Left atrium is severely enlarged. Right atrium is moderately enlarged. 4. There is mild mitral annular calcification seen. There is mild mitral valve regurgitation seen 5. There is mild tricuspid valve regurgitation 6. Aortic valve is trileaflet with mild calcification. There is no regurgitation or stenosis seen 7. Right ventricle is mildly enlarged with normal systolic function 8. Estimated with systolic pressure is 42 mm Hg suggestive of mild pulmonary hypertension Dictated by: FRAN GRIMALDO MD (more content not included)... Normal [facility] CV ECHO COMPLETE CV ECHO [place] [address] Patient: SANDRA ARREDONDO Phone#: : 1945 Age: 78 Gender: F Pt. Type: Out Account: [id number] Location: [facility] Ordering: FRAN GRIMALDO Exam Date: 05/28/2024/9:07 Family Phys: CASEY HARDY Charge Code: [id number] Physician: Crook Order #: [id number] Dose#: PROCEDURE: ECHOCARDIOGRAM WITH DOPPLER AND COLOR FLOW HISTORY: Patient is 78-year-old female with history of atrial fibrillation INDICATIONS: AFIB COMPARISON: None. TECHNIQUE: A 2-D ultrasound, color spectral Doppler and M-mode evaluation of the heart and great vessels. PATIENT MEASUREMENTS: Height (in.): 59 BSA: 1.87 Weight (lbs.): 207 BP: 128/61 Medical Review Coordinator: BINDU M MODE 2D MEASUREMENTS AND CALCULATIONS: LVIDd: 4.57 cm LVIDs: 3.41 cm IVSd: 0.99 cm LVPWd: 1.07 cm LVOT diam: 2.39 cm FS: 25.41 % Ao Root diam: 2.55 cm LA diam: 5.7 cm LA Volume Index: 64 ml/m2 LA A4 Area: 32.64 cm2 RA A4 Area: 25.2 cm2 RVDd: 4.4 cm TAPSE: 2.2 cm DOPPLER MEASUREMENTS AND CALCULATIONS MITRAL MV E MAX ti: 1.10 m/s MV A MAX ti: 0.39 m/s MV E-A ratio: 2.82 ERO: 0.07 cm2 Reg Vol 13.91 ml Lat Peak E' Ti 9 cm/sec Septal Peak E' TI 7 cm/sec Continued Report - Page 2 of 3 Patient: SANDRA ARREDONDO Phone#: : 1945 Age: 78 Gender: F Pt. Type: Out Account: [id number] Location: [facility] Ordering: FRAN GRIMALDO Exam Date: 05/28/2024/9:07 Family Phys: [facility] Charge Code: [id number] Physician: Crook Order #: [id number] Dose#: AORTIC Ao V2 max: 1.63 m/s Ao max P.66 mm[Hg] Ao V2 mean: 1.15 m/s Ao mean P.97 mm[Hg] Ao V2 VTI: 40.15 cm RACHEL (V Max): 2.05 cm2 RACHEL (VTI): 2.08 cm2 LV V1 Max 0.75 m/s LV V1 Max PG 2.23 mm[Hg] LV V1 Mean PG 1.30 mm[Hg] LV V1 mean 0.54 m/s LV V1 VTI 18.55 cm PULMONIC PA V2 Max 0.85 m/s PA Max PG 2.88 mm[Hg] TRICUSPID TR Max Ti 2.89 m/s TR max PG 33.55 mm[Hg] RVSP 42 mm Hg 2D/M-MODE AND COLOR FLOW LEFT VENTRICLE: The ventricle is normal in size and thickness. Systolic ejection fraction is 55-60%. There are no regional wall motion abnormality seen. Can not assess diastolic function due to EA fusion WALL MOTION: 1 - Basal anterior: Normal. 7 - Mid anterior: Normal. 13 - Apical anterior: Normal. 2 - Basal anteroseptal: Normal. 8 - Mid anteroseptal: Normal. 14 - Apical septal: Normal. 3 - Basal inferoseptal: Normal. 9 - Mid inferoseptal: Normal. 15 - Apical inferior: Normal. 4 - Basal inferior: Normal. 10-Mid inferior: Normal. 16 - Apical lateral: Normal. 5 - Basal inferolateral: Normal. 11-Mid inferolateral: Normal. 6 - Basal anterolateral: Normal. 12-Mid anterolateral: Normal. RIGHT VENTRICLE: Right ventricle is mildly enlarged with normal systolic function. LEFT ATRIUM: Left atrium is severely enlarged. RIGHT ATRIUM: Right atrium is moderately enlarged. ATRIAL SEPTUM: There is no large interatrial shunt seen. PFO was not assessed. MITRAL VALVE: There is mild mitral annular calcification seen. Mitral valve leaflets appear normal in thickness. There is mild regurgitation and no stenosis seen. TRICUSPID VALVE: Tricuspid valve is normal structure. There is mild regurgitation and no stenosis seen AORTIC VALVE: Aortic valve is trileaflet with mild calcification. There is no regurgitation or stenosis seen Continued Report - Page 3 of 3 Patient: SANDRA ARREDONDO Phone#: : 1945 Age: 78 Gender: F Pt. Type: Out Account: [id number] Location: [facility] Ordering: FRAN GRIMALDO Exam Date: 05/28/2024/9:07 Family Phys: [facility] Charge Code: [id number] Physician: Crook Order #: [id number] Dose#: PULMONIC VALVE: Pulmonic valve is inadequately visualized. Doppler shows no significant regurgitation or stenosis AORTIC ROOT: Aortic root is normal in size AORTIC ARCH: Inadequately visualized DESC THORACIC AORTA: Inadequately visualized IVC/SVC: IVC is dilated with more than 50% collapse of inspiration. Estimated atrial pressure is 8 mm Hg. PERICARDIUM: There is no pericardial effusion seen CONCLUSION: 1. Echo enhancing agent was utilized to assess for endocardial drake 2. Left ventricle is normal in size and thickness. Systolic ejection fraction 55-60% with normal wall motion 3. Left atrium is severely enlarged. Right atrium is moderately enlarged. 4. There is mild mitral annular calcification seen. There is mild mitral valve regurgitation seen 5. There is mild tricuspid valve regurgitation 6. Aortic valve is trileaflet with mild calcification. There is no regurgitation or stenosis seen 7. Right ventricle is mildly enlarged with normal systolic function 8. Estimated with systolic pressure is 42 mm Hg suggestive of mild pulmonary hypertension Dictated by: FRAN GRIMALDO MD (more content not included)... Normal [facility] CBC + DIFFon 05-20-2024 Baso # 0.01 x10EE3/UL Normal 0.00 - 0.10 [facility] Comment on above: Performed By: #### 2 [id number] #### [facility],[address] [place] [address] Basophils/100 WBC (Bld) 0.4 % Normal 0.0 - 2.0 [facility] Comment on above: Performed By: #### 2 86261 #### [facility],[address] [place] [address] CBC + DIFF Normal [facility] Comment on above: Result Comment: CBC- COMPLETE BLOOD COUNT Performed By: #### 2 [id number] #### [facility],[address] [place] [address] EO # 0.08 x10EE3/UL Normal 0.00 - 0.50 [facility] Comment on above: Performed By: #### 2 62245 #### [facility],[address] [place] [address] Eosinophils/100 WBC (Bld) 2.1 % Normal 0.0 - 7.0 [facility] Comment on above: Performed By: #### 2 34179 #### [facility],[address] [place] [address] Erythrocyte distribution width (RBC) [Ratio] 13.8 % Normal 12.0 - 15.6 [facility] Comment on above: Performed By: #### 2 81097 #### [facility],[address] [place] [address] Hematocrit (Bld) [Volume fraction] 33.7 % Low 34.0 - 46.0 [facility] Comment on above: Performed By: #### 2 01953 #### [facility],[address] [place] [address] Hemoglobin (Bld) [Mass/Vol] 11.4 g/dL Low 12.0 - 16.0 [facility] Comment on above: Performed By: #### 2 51750 #### [facility],[address] [place] [address] Lymph # 0.83 x10EE3/UL Normal 0.80 - 2.80 [facility] Comment on above: Performed By: #### 2 09863 #### [facility],[address] [place] [address] Lymphocytes/100 WBC (Bld) 22.3 % Normal 20.0 - 45.0 [facility] Comment on above: Performed By: #### 2 08728 #### [facility],[address] [place] [address] MANUAL DIFF N/A Normal [facility] Comment on above: Performed By: #### 2 90878 #### [facility],[address] [place] [address] MCH (RBC) [Entitic mass] 31 pg Normal 27 - 33 [facility] Comment on above: Performed By: #### 2 97426 #### [facility],[address] [place] [address] MCHC 34 X10 3 Normal 32 - 36 [facility] Comment on above: Performed By: #### 2 80455 #### [facility],[address] [place] [address] MCV (RBC) [Entitic vol] 93 fL Normal 80 - 99 [facility] Comment on above: Performed By: #### 2 12782 #### [facility],[address] [place] [address] [place] # 0.33 x10EE3/UL Normal 0.20 - 1.00 [facility] Comment on above: Performed By: #### 2 97790 #### [facility],[address],[place] [address] MONOS % 8.8 % Normal 0.0 - 10.0 [facility] Comment on above: Performed By: #### 2 26564 #### [facility],[address] [place] [address] Morphology Gilberto (Bld) [Interp] N/A Normal [facility] Comment on above: Performed By: #### 2 94571 #### [facility],[address] [place] [address] Neut # 2.47 x10EE3/UL Normal 1.50 - 7.10 [facility] Comment on above: Performed By: #### 2 35688 #### [place] [id number] Neutrophils/100 WBC (Bld) 66.4 % Normal 46.0 - 76.0 [facility] Comment on above: Performed By: #### 2 58386 #### [facility],[address] [place] [address] PLATELET 163 x10EE3/UL Normal 150 - 450 [facility] Comment on above: Performed By: #### 2 68374 #### [place] [id number] Platelet mean volume (Bld) [Entitic vol] 8.5 fL Normal 6.6 - 10.5 [facility] Comment on above: Result Comment: AUTO MATED DIFFERENTIAL Performed By: #### 2 46228 #### [facility],[address] [place] [address]2560 RBC 3.63 x 10EE6/UL Low 4.10 - 5.30 [facility] Comment on above: Performed By: #### 2 21296 #### [facility],[address] [place] [address] 52488 WBC 3.7 x 10EE3/UL Low 4.5 - 10.8 [facility] Comment on above: Performed By: #### 2 03837 #### [facility],[address] [place], [place] [id number] CMP with eGFRon 05-20-2024 AGE 78 years Normal [facility] Comment on above: Performed By: #### 2 38566 #### [facility],[address] [place] [address] 31493 Albumin [Mass/Vol] 2.8 g/dL Low 3.4 - 5.0 [facility] Comment on above: Performed By: #### 2 77505 #### [facility],[address] [place], [place] [id number] Albumin/Globulin [Mass ratio] 0.8 {ratio} Low 0.9 - 1.6 [facility] Comment on above: Performed By: #### 2 04278 #### [facility],[address] [place] [address] ALK PHOS 104 U/L Normal 46 - 116 [facility] Comment on above: Performed By: #### 2 25714 #### [facility],[address] [place] [address] 55185 ALT [Catalytic activity/Vol] 16 U/L Normal 16 - 63 [facility] Comment on above: Performed By: #### 2 26618 #### [facility],[address] [place], [place] [id number] Anion gap [Moles/Vol] 10 mmol/L Normal 10 - 20 [facility] Comment on above: Performed By: #### 2 52024 #### [facility],[address] [place] [address] 57287 AST [Catalytic activity/Vol] 23 U/L Normal 13 - 39 [facility] Comment on above: Performed By: #### 2 44356 #### [facility],[address] [place] [address]8578 B/C RATIO 20 ratio Normal 0 - 30 [facility] Comment on above: Performed By: #### 2 00496 #### [facility],[address] [place] [address]338 Bilirubin [Mass/Vol] 0.7 mg/dL Normal 0.2 - 1.0 [facility] Comment on above: Performed By: #### 2 63844 #### [facility],[address] [place] [address] 81703 Calcium [Mass/Vol] 8.6 mg/dL Normal 8.5 - 10.1 [facility] Comment on above: Performed By: #### 2 61952 #### [facility],[address] [place] [address]339 Chloride [Moles/Vol] 107 mmol/L Normal 98 - 107 [facility] Comment on above: Performed By: #### 2 02447 #### [facility],[address] [place], [place] [id number] CMP with eGFR Normal [facility] Comment on above: Result Comment: COMP REHENSIVE METABOLIC PANEL Performed By: #### 2 30795 #### [facility],[address] [place] [address] 16219 CO2 [Moles/Vol] 29.8 mmol/L Normal 21.0 - 32.0 [facility] Comment on above: Performed By: #### 2 37622 #### [facility],[address] [place] [address] 98233 Creatinine [Mass/Vol] 0.70 mg/dL Normal 0.55 - 1.02 [facility] Comment on above: Performed By: #### 2 95735 #### [facility],[address] [place] [address]1131 GFR/1.73 sq M.predicted among non-blacks MDRD (S/P/Bld) [Vol rate/Area] mL/min/{1.73_m2} Normal 60 - 999 [facility] Comment on above: Performed By: #### 2 91761 #### [facility],[address] [place] [address] Result Comment: ACCO RDING TO THE NATIONAL KIDNEY DISEASE EDUCATION PROGRAM(NKDE), A NORMAL eGFR IS A VALUE GREATER THAN OR EQUAL TO 60 ML/MIN/1.73 SQ METERS. CHRONIC KIDNEY DISEASE: <60mL/MIN/1.73 SQ METERS KIDNEY FAILURE: <15mL/MIN/1.73 SQ METERS THIS TEST SHOULD ONLY BE USED FOR PATIENTS 18 YEARS OF AGE AND OLDER. Globulin (S) [Mass/Vol] 3.4 g/dL Normal 1.5 - 3.8 [facility] Comment on above: Performed By: #### 2 33808 #### [facility],[address] [place] [address] 24035 Glucose [Mass/Vol] 96 mg/dL Normal 74 - 106 [facility] Comment on above: Performed By: #### 2 09960 #### [facility],[address] [place] [address]37 Potassium [Moles/Vol] 3.9 mmol/L Normal 3.5 - 5.1 [facility] Comment on above: Performed By: #### 2 24440 #### [facility],[address] [place] [address] 15615 Protein [Mass/Vol] 6.2 g/dL Low 6.4 - 8.2 [facility] Comment on above: Performed By: #### 2 57490 #### [facility],[address] [place] [address] 80410 Sodium [Moles/Vol] 143 mmol/L Normal 136 - 145 [facility] Comment on above: Performed By: #### 2 24939 #### [facility],[address] [place] [address] 04674 Urea nitrogen [Mass/Vol] 14 mg/dL Normal 7 - 18 [facility] Comment on above: Performed By: #### 2 00446 #### [facility],[address] [place] [address] 11020 HEMOGLOBIN A1C (POM)on 05-20 Glucose [Mass/Vol] 116.9 mg/dL High 0.0 - 0.0 [facility] Comment on above: Result Comment: BLDo HEMOGLOBIN A1C REFERENCE RANGESBLDo Suggested Diagnosis HbA1c(%) HbA1C (mmol/mol Diabetic >/=6.5 >/=48 Prediabetes 5.7 - 6.4 39 - 47 Normal <5.7 <39 Performed By: #### 2 70428 #### [facility],[address] [place] [address] 44890 HbA1c (Bld) [Mass fraction] 5.7 % Normal 0.0 - 6.5 [facility] Comment on above: Performed By: #### 2 44798 #### [facility],[address] [place] [address] 76770 LIPID PROFILEon 05-20-2024 Cholesterol [Mass/Vol] 106 mg/dL Normal 0 - 240 [facility] Comment on above: Performed By: #### 2 52661 #### [facility],[address] [place] [address] 25868 Cholesterol in HDL [Mass/Vol] 48 mg/dL Normal 40 - 60 [facility] Comment on above: Performed By: #### 2 53248 #### [facility],[address] [place] [address] 77921 Cholesterol in LDL [Mass/Vol] 39 mg/dL Normal 0 - 129 [facility] Comment on above: Performed By: #### 2 26387 #### [facility],[address] [place] [address] 25841 Cholesterol.total/ Cholesterol in HDL [Mass ratio] 2.2 {ratio} Normal 0.0 - 5.0 [facility] Comment on above: Performed By: #### 2 72638 #### [facility],[address] [place] [address] 62396 Lipid 1996 panel Normal [facility] Comment on above: Result Comment: LIPI D PROFILE Performed By: #### 2 17913 #### [facility],[address] [place] [address] 27252 Triglyceride [Mass/Vol] 94 mg/dL Normal 0 - 150 [facility] Comment on above: Performed By: #### 2 36739 #### [facility],[address] [place] [address] Hemoglobin A1con 10-26-2021 Glucose [Mass/Vol] 114 mg/dL Normal [facility] Comment on above: Performed By: #### H BA1C #### [facility] [address] [address] HbA1c (Bld) [Mass fraction] 5.6 % Normal 4.3-5.6 [facility] Comment on above: Performed By: #### H BA1C #### [facility] [address] [place] [address] Hepatitis C RNAon 02-11-2021 Hepatitis C RNA Normal [facility] Comment on above: Result Comment: HCV RNA not Reference Range: Negative for HCV RNA The Linear Range of this assay is 15 IU/mL to 100,000,000 IU/mL. detected by Reference Range: Negative for HCV RNA The Linear Range of this assay is 15 IU/mL to 100,000,000 IU/mL. PCR. Reference Range: Negative for HCV RNA The Linear Range of this assay is 15 IU/mL to 100,000,000 IU/mL. Performed By: #### H CQPCR #### [facility] [address] [place] [address] Vital Signs Date Time Vital Sign Value Performing Clinician Nicki francia 06-09-2025 11:09040 Body height 147.32 cm [employer] Work Phone: [facility] 06-09-2025 11:09 Body mass index (BMI) [Ratio] 42 kg/m2 [employer] Work Phone: [facility] 06-09-2025 11:09040 Body weight 91.17 kg [employer] Work Phone: [facility] 06-09-2025 11:09-0400 Diastolic blood pressure 80 mm[Hg] [facility] PA-C Work Phone: [facility] 06-09-2025 11:09-0400 Heart rate 72 /min [facility] PA-C Work Phone: [facility] 06-09-2025 11:09-0400 Respiratory rate 18 /min [facility] PA-C Work Phone: [facility] 06-09-2025 11:09-0400 SaO2% (BldA) [Mass fraction] 95 % [facility] PA-C Work Phone: [facility] 06-09-2025 11:09-0400 Systolic blood pressure 131 mm[Hg] [facility] PA-C Work Phone: [facility] Encounters Encounter Date Encounter Type Care Provider Facility Start: 07-30-2025 ambulatory Natalie Kingsley NP Fac ility:[facility] Start: 07-08-2025 End: 07-08-2025 ambulatory Gordon Fernandez Facility:[facility] Start: 06-09-2025 End: 06-09-[address] Gordon Fernandez MD -[facility] Work Phone: Start: 06-09-2025 End: 06-09-2025 ambulatory [facility] PA-C Work Phone: -[facility] Start: 04-29-[address] BLANCHE GUDINO MD Facil ity:A Start: 03-08-2025 End: 03-08-2025 ambulatory [facility] Start: 10-12-2024 End: 10-12-2024 ambulatory [facility] Start: 09-15-[address] [facility] Start: 07-27-2024 End: 07-27-2024 ambulatory [facility] Start: 07-17-2024 End: 07-17-2024 ambulatory DAMIEN HEIN [facility] Start: 05-28-2024 End: 05-28-2024 ambulatory FRAN GEE [facility] Start: 05-20-2024 End: 05-20-2024 ambulatory FRAN GEE [facility] Plan of Treatment Date Care Activity Detail Author Start: 06-09-2025 End: 06-09-2025 Evaluation of diagnostic study results [facility] Polysomnography [facility] Payers Date Payer Category Payer Self-pay 2025 Medicare [id number] 1945 Unknown [id number] 2.16. [id number] 1945 Unknown [id number] 2.16.8 [id number] 1945 Unknown [id number] 2.16.8 [id number] 1945 Unknown [id number] 2.16.8 [id number] 1945 Unknown [id number] 2.16.8 [id number] 1945 Unknown [id number] 2.16.8 [id number] 1945 Unknown [id number] 2.16.8 [id number] 1945 Unknown [id number] 2.16.8 [id number] Unknown [id number] 2.16.8 [id number] Unknown [id number] 2.16.8 [id number] Unknown [id number] 2.16.8 [id number] Social History Date Type Detail Facility Start: [facility]-09-20[facility] Sex Female [facility] Start: 1945 Sex Assigned At Female [facility] Progress note 06-09-2025 Note Date & Type Note Facility 06-09-2025 Progress note [facility] Evaluation note Note Date & Type Note Facility Evaluation note Diagnosis Onset Date Resolution Atrial fibrillation acute Octob er 2024 11:00am Dyslipidemia acute June 09, 2025 11:00am Heart failure with preserved ejection fraction acute June 09 11:00am Pulmonary hypertension acute Oc tober 2024 11:00am Type 2 diabetes mellitus acute June 09 11:00am Hypertension chronic June 09, 2025 11:00am [facility] Work Phone: Progress note Note Date & Type Note Facility Progress note Note Date/Time June 09, 2025 11:49am [facility] [address] [place] [address] OFFICE VISIT Date of Service: 06/09/25 MR#: [id number] Acct: [id number] Name: SANDRA ARREDONDO Rep #: [id number] : 1945 Provider: Dr. Jonah Fernandez MD Age/Sex: 79/F Location: [facility] Status: Signed HPI HPI History of Present Illness Details: Patient is a very pleasant 79-year-old white female that comes in with her 2 daughters this morning to establish as a new patient. Patient carries a history of heart failure with preserved ejection fraction. She has never been hospitalized. She also has a history of pulmonary hypertension pulmonary artery pressures estimated at 42 with the right ventriclebeing mildly enlarged with normal systolic function May 2024 echo. She has a history of hypertension blood pressure is well-controlled in the office today at 131/80 she has a history of hyperlipidemia last lipids May 2024 were excellent she also has a history of diabetes I do not have a hemoglobin A1c. The patient also has permanent atrial fibrillation which is treated with oral anticoagulation with Xarelto which she gets for $10-$12 a month and rate controlwith metoprolol. ECG in office today shows atrial fibrillation at 74 bpm with low voltage QRS this was done seated in the chair. The patient has not been on an SGLT2 inhibitor as she has recurrent yeast infections and is concerned about the side effects. The patient denies any PND orthopnea she denies any significant dyspnea on exertion. She gets around in her house utilizing a cane and occasionally a walker. When going on long walks out to the store she uses a wheelchair. The patient does her actives of daily living and she is able to do some light housework. Her biggest complaint is hersignificant kyphosis. The patient has a history of obstructive sleep apnea but neither she nor her daughters know where that came from she has never had a sleep test to her knowledge. Intake Vital Signs 06/09/25 11:09 Height 4 ft 10 in Weight: 201 lb BMI 42.0 BP 131/80 H Blood Pressure Location Lt brachial Position Sitting Respiration 18 Pulse 72 Pulse Source Monitor Pulse Oximetry (%) 95 Oxygen Delivery Method room air Intake Visit Reasons: CHF (HARDY) Extractions Technician Required: No Accompanied by: Daughters Is patient in pain?: No Allergies No Known Allergies Allergy (Unverified 06/09/25 11:05) Medications ?Medication ?Instructions ?Recorded ?Confirmed ?Type acetaminophen 650 mg 650 mg PO Q8H PRN 05/24/25 1 History tablet,extended release (Tylenol 8 Hour) ascorbate calcium (vitamin C) 500 500 mg PO QDAY 05/2406/09/25 History mg tablet calcium citrate 250 mg PO QDAY 05/24/2510/03 History cetirizine 10 mg tablet (Allergy 10 mg PO QDAY PRN 06/09/25 History Relief (cetirizine)) cholecalciferol (vitamin D3) 50 50 mcg PO QDAY 2 5 06/09/25 History mcg (2,000 unit) capsule multivitamin 1 tab PO QDAY 05/24/2506/09 History nystatin 100,000 unit/gram topical 1 applic topical TI D 05/24/25 06/09/25 History cream triamcinolone acetonide 0.1 % 1 applic topical BID 06/09/25 History topical cream furosemide 20 mg tablet (Lasix) 20 mg PO QDAY #120 tab s 06/09/25 06/09/25 Rx metoprolol succinate 25 mg 12.5 mg (1/2 x 25 mg) PO QD AY #90 06/09/25 06/09/25 Rx tablet,extended release 24 hr tabs potassium chloride 10 mEq 10 meq PO BID #90 tabs 06/0906/09/25 Rx tablet,extended release (Klor-Con) rivaroxaban 20 mg tablet (Xarelto) 20 mg PO QDAY #90 t abs 06/09/25 06/09/25 Rx Ejection fraction %: 57 Have you fallen in the past year?: No PFSH Medical History Pulmonary hypertension NICK (obstructive sleep apnea) Thrombus of left atrial appendage Tricuspid valve regurgitation Hypertension Dyslipidemia Type 2 diabetes mellitus Heart failure with preserved ejection fraction Myocardial infarction Atrial fibrillation Surgical History History of cholecystectomy History of knee replacement History of tubal ligation Family History Father Cancer Mother Heart disease Brother CVA (cerebral vascular accident) Social History Smoking Status: Former smoker alcohol intake: never substance use type: does not use caffeine: No ROS Const Const: Negative for fatigue or weakness ENT ENT: Positive for dizziness; Negative for balance problems Cardio Chest Pain: No Palpitations: No Edema: Bilateral Muscle aches with walking: None Resp Respiratory: Negative for SOB with activity, SOB at rest or SOB orthopnea\SOB lying down GI GI: Negative nausea, vomiting or heartburn Musc Musc: Negative for muscle weakness or balance problems Neuro Neuro: Positive for dizziness; Negative for lightheadedness, near syncope, syncope or weakness Endo Endo: Negative for fatigue Cardiology Exam Const Appearance: cooperative, comfortable and no acute distress Nutritional Appearance: obese Head Head: normal to inspection Eyes General: appearance normal, both eyes and all related structures Neck Neck: normal visual inspection and no JVD Carotids: Negative bruit Chest Chest inspection: other (Significant kyphosis.) Auscultation: Bilateral: Clear to Auscultation Cardio Rate: regular rate Rhythm: irregularly irregular Heart sounds: S1 normal and S2 normal; Negative rub, gallop or murmur Distant heart tones due to body habitus GI GI: obese Neuro General: patient alert and patient oriented x3 Extremities Lower Extremity Edema: +1: Bilateral Psych Psychological: normal affect Supplemental Info Supplemental Information Past Visits: Cardiology Visit Today Assessment and Plan Assessment and Plan (1) Heart failure with preserved ejection fraction: Status: Acute Qualifiers: Heart failure chronicity: chronic Qualified Code(s): I50.32 - Chronic diastolic (congestive) heart failure Plan: Patient carries a history of heart failure with preserved ejection fraction. Her blood pressure is well-controlled she does not have any significant structural heart disease other than her pulmonary hypertension. The patient denies any symptoms of congestion. She has never been hospitalized for heart failure. The patient does not want to take SGLT2 inhibitors due to her recurring yeast infections. BNP levels have been mildly elevated and she does have lower extremity edema butshe is well compensated. She has trialed compression socks in the past but theycaused her to have pinched nerve type symptoms and she fell. (2) Atrial fibrillation: Status: Acute Qualifiers: Atrial fibrillation type: permanent Qualified Code(s): I48.21 - Permanent atrial fibrillation Plan: Patient is in permanent atrial fibrillation. She has severely enlarged left atrium mild mitral regurgitation is noted as well this is from an echocardiogramSept2023. The patient is tolerating Xarelto without any nuisance bleeding her rate is well-controlled on beta-carmen therapy. (3) Dyslipidemia: Status: Acute Plan: Patient's lipids May 2024 total cholesterol 106 HDL 48 LDL 39 and triglycerides 94 this is on no statin therapy. (4) Hypertension: Status: Chronic Qualifiers: Hypertension type: primary hypertension Qualified Code(s): I10 - Essential (primary) hypertension Plan: Patient's blood pressure is well-controlled at 131/80 in the office today. Thisis managed through the primary service. (5) Pulmonary hypertension: Status: Acute Plan: Patient's pulmonary pressure estimated 42 mmHg May 2024 echo. It is likely that this may be exacerbated by obstructive sleep apnea. The patient andher 2 daughters are adamant that she has never been tested but there is a history of obstructive sleep apnea in her medical record. Will obtain sleep study and refer as needed. (6) Type 2 diabetes mellitus: Status: Acute Qualifiers: Diabetes mellitus senior living insulin use: without senior living use Diabetesmellitus complication status: without complication Qualified Code(s): E11.9 - Type 2 diabetes mellitus without complications Plan: Diabetes is managed by the primary service. This is being treated by diet. Orders: Orders 12 Lead EKG performed by BMS Today I48.91 - Unspecified atrial fibrillation Polysomnography 2 Weeks G47.10 - Hypersomnia, unspecified Medications: New furosemide (Lasix) 1 tablet daily on Sun, Tues, Wed, Fri, Sat; 1 tablet twice daily on Mon and Thurs 20 mg PO QDAY 120 tabs 3RF metoprolol succinate ER 12.5 mg (1/2 x 25 mg) PO QDAY 90 tabs 3RF potassium chloride ER (Klor-Con) 1 tablet twice daily Sun, Tues, Wed, Fri, Sat; 1 tablet three times daily Monand Thurs 10 mEq PO BID 90 tabs 3RF rivaroxaban (Xarelto) must administer with evening meal 20 mg PO QDAY 90 tabs 3RF Plan 1. Sleep study. 2. Will refer pending outcome of sleep lab evaluation. 3. Patient be reevaluated in our office in 6 months with CONNIE and as needed. Plan Details Additional Comments: Thank you for allowing me to participate in the care of your patient. Please don't hesitate to call if any issues arise. This note was generated using a voice recognition system and there may be incorrect words, spelling, or punctuation that were not noted when reviewing theoffice note prior to saving. Portions of this documentation were copied and pasted from previous office visitnotes to provide a cohesive continuity of the history. The note has been reviewed, edited, and updated, as necessary. Follow Up: 6 Months (With CONNIE and as needed) Coding Level of Care Code Off vis,new,level 4 Diagnoses Chronic heart failure with preserved ejection fraction (HFpEF) I50.32 Heart failure chronicity: chronic Permanent atrial fibrillation I48.21 Atrial fibrillation type: permanent Dyslipidemia E78.5 Primary hypertension I10 Hypertension type: primary hypertension Pulmonary hypertension I27.20 Type 2 diabetes mellitus without complication, without long-term current use of insulin E11.9 Diabetes mellitus [employer] insulin use: without [employer] use Diabetes mellitus complication status: without complication Coding Level of Care Code Off vis,new,level 4 Diagnoses Chronic heart failure with preserved ejection fraction (HFpEF) I50.32 Heart failure chronicity: chronic Permanent atrial fibrillation I48.21 Atrial fibrillation type: permanent Dyslipidemia E78.5 Primary hypertension I10 Hypertension type: primary hypertension Pulmonary hypertension I27.20 Type 2 diabetes mellitus without complication, without long-term current use of insulin E11.9 Diabetes mellitus [employer] insulin use: without [employer] use Diabetes mellitus complication status: without complication Clinical Quality Measures Falls Risk Screening/Assistive Devices Have you fallen in the past year?: No Cardiac Ejection fraction %: 57 06/09/25 1157 <Electronically signed by Gordon putnam MD> Date _ Gordon Fernandez MD Cosigner Signature: Date (if applicable) CC: LISANDRO Daniel ~ [facility] Work Phone: Reason for referral (narrative) Note Date & Type Note Facility Reason for referral (narrative) No reason for referral information available [facility] Work Phone: Summary Purpose Family History No Family History Records Found Relationship Condition Age at Onset Recorded Date/T selene father Malignant neoplasm Unknown mother Cardiac disease Unknown brother Cerebrovascular accident (CVA) Unknown Advance Directives No Advanced Directives Records FoundNo Advanced Directives Records FoundNo Advanced Directives Records FoundNo Advanced Directives Records Found Chief Complaint and Reason for Visit Chief Complaint Admit Date CHF (HARDY) June 09, 2025 11 :00am Reason for Visit Admit Date Atrial fibrillation June 09, 2025 11 :00am Dyslipidemia June 09, 2025 11 :00am Heart failure with preserved ejection fr action June 09, 2025 11:00am Pulmonary hypertension June 09, 2025 11:00am Type 2 diabetes mellitus June 09 11:00am Hypertension June 09, 2025 11 :00am Additional Source Comments INFORMATION SOURCE (unrecogn ized section and content) DATE CREATED AUTHOR 10/27/2021 [facility] DATE CREATED AUTHOR AUTHOR'S ORGANIZ ATION 03/09/2025 [facility] DATE CREATED AUTHOR AUTHOR'S ORGANIZ ATION 04/30/2025 [facility] DATE CREATED AUTHOR AUTHOR'S ORGANIZ ATION 07/19/2025 [facility] Care Teams (unrecognized sec tion and content) Team Status: Active Member Role/Relationship Status Dates Casey JULIO PA-C Primary care physician Active Team Status: Inactive Member Role/Relationship Status Dates Casey JULIO PA-C Primary care physician Active Start: June 09, 2025 End: June 09, 2025 Casey JULIO PA-C Referring Provider Active Start: June 09, 2025 End: June 09, 2025 Dr. Gordon Fernandez MD Attending physician Active Start: June 09, 2025 End: June 09, 2025 Goals (unrecognized section and content) Goals may be documented in a n alternate section FOR RECORDS PERTAINING TO PATIENTS WHO ARE OR HAVE BEEN ENROLLED IN A CHEMICAL DEPENDENCY/SUBSTANCEABUSE PROGRAM, SOME INFORMATION MAY BE OMITTED. This clinical summary was aggregated from multiple sources. Caution should be exercised in using it in the provision of clinical care. This summary normalizes information from multiple sources, and as a consequence, information in this document may materially change the coding, format and clinical context of patient data. In addition, data may be omitted in some cases. CLINICAL DECISIONS SHOULD BE BASED ON THE PRIMARY CLINICAL RECORDS. [facility] [employer] provides no warranty or guarantee of the accuracy or completeness of information in this document.
--- NOTE | 2025-08-13 12:25 | RAD_ITS ---
PROCEDURE: TIBIA FIBULA 2 VIEWS 08/13/2025 REASON FOR EXAM: PAIN TECHNIQUE: Procedure Code: RADTF Modality: DX Procedure: TIBIA FIBULA 2 VIEWS Laterality: Right COMPARISON: None available. FINDINGS: Bones: No fracture. No suspicious bone lesion. Joints: Normal alignment. Mild degenerative changes. Soft tissues: Soft tissues are unremarkable. RAD/Tibia & Fibula 2 Views IMPRESSION: DEGENERATIVE OSTEOARTHROSIS. NO ACUTE FINDINGS. [facility]
[2025-08-13 13:11] VITALS: BP 136/54; PULSE 90; RESP 16; TEMP 36.6; O2SAT 98
== END 2025-08-13 13:12 | disposition home or self-care (01) ==
PROVIDERS: Emergency Provider Emergency Medicine; PCP Family Medicine; Visit Provider Emergency Medicine
DX: M79.661 Pain in right lower leg (principal); I11.0 Hypertensive heart disease with heart failure; I50.32 Chronic diastolic (congestive) heart failure; I48.91 Unspecified atrial fibrillation; E11.9 Type 2 diabetes mellitus without complications; X50.1XXA Overexertion from prolonged static or awkward postures, initial encounter; Z96.652 Presence of left artificial knee joint; Z79.01 Long term (current) use of anticoagulants; Z79.899 Other long term (current) drug therapy; Z87.891 Personal history of nicotine dependence
CPT/HCPCS: 73590; 93971; 99282